=== PATIENT | male | born 1970 | race Caucasian/White ===

== ENCOUNTER → 2022-05-13 13:17 | Outpatient (CLI) | payer OTHER, SELFPAY ==
--- NOTE | 2022-05-13 | DI.ECHO.S_ITS ---
[facility]---------+ [facility] +---------+ : : [address] : [address] : : : : [id number] : : : : Phone: [phone]---------+ Echocardiogram Report + + :Name: JESSICA PEARCE Study Date: 05/13/2022 Height: 66 in : :[facility] ReadingLocation: Weight: 162 lb : : Gender: Male BSA: 1.8 m2 : :: 1970 Age: 51 yrs BP: 134/87 mmHg: :Reason For Study: PRECORDIAL PAIN : :Ordering Physician: NAVEED, : :JACY Butt Performed By: Oumou Weber : :Referring: JACY LUCIO : + + Interpretation Summary The patient was in sinus rhythm with heart rates between 60-72 bpm during the exam. The left ventricle is normal in size and wall thickness. The ejection fraction is estimated to be 60-65%. Diastolic parameters suggest probable normal left ventricular diastolic function and normal filling pressures. No significant valvular disease. No prior study for comparison Procedure: A two-dimensional transthoracic echocardiogram with color flow and Doppler was performed. The study quality was technically adequate. There is no prior echocardiogram noted for this patient. The patient was in sinus rhythm with heart rates between 60-72 bpm during the exam. Left Ventricle: The left ventricle is normal in size and wall thickness. The ejection fraction is estimated to be 60-65%. Diastolic parameters suggest probable normal left ventricular diastolic function and normal filling pressures. Right Ventricle: The right ventricle is normal in size and function. Atria: The left atrial size is normal. Right atrial size is normal. There is no Doppler evidence for an interatrial shunt. Mitral Valve: The mitral valve is normal in structure and function. There is trace mitral regurgitation. Aortic Valve: The aortic valve is trileaflet. The aortic valve opens well. There is no aortic valve stenosis. There is trace aortic regurgitation. Tricuspid Valve: The tricuspid valve is normal in structure and function. There is trace tricuspid regurgitation. Pulmonic Valve: The pulmonic valve is not well visualized. There is trace pulmonic regurgitation. Great Vessels: The aortic root is normal size. The dimensions of the ascending aorta are normal. The IVC is of normal diameter and collapses greater than 50% with a sniff. This suggests a low right atrial pressure of 3 mm Hg. Pericardium/ Pleura There is no pericardial effusion. There is no pleural effusion. MMode/2D Measurements & Calculations LVIDd: 4.5 cm LVOT diam: 2.1 cm LVIDs: 3.3 cm Ao root diam: 3.5 cm FS: 27.2 % asc Aorta Diam: 3.4 cm IVSd: 0.91 cm Ao Arch Diam (Prox Trans): 2.7 cm LVPWd: 0.85 cm LV elizalde. diameter/BSA (cm/m^2): 2.4 LV sys. diameter/BSA (cm/m^2): 1.8 LA A2 area: 14.3 cm2 RA long axis: 4.2 cm LA A4 area: 13.7 cm2 RA area: 12.6 cm2 LA length (vol): 4.5 cm RA vol: 32.6 ml LA vol: 36.7 ml RA : 17.8 ml/m2 LA vol index: 20.1 ml/m2 IVC diam: 1.4 cm RVD1 (basal): 3.4 cm RVD2 (mid): 2.9 cm TAPSE: 2.2 cm Doppler Measurements & Calculations Ao V2 max: 140.3 cm/sec LVOT Max Brandon: 132.6 cm/sec Ao V2 mean: 96.7 cm/sec LV V1 max P.0 mmHg Ao max P.9 mmHg LV V1 VTI: 26.1 cm Ao mean P.3 mmHg HILLARY(I,D): 3.6 cm2 Ao V2 VTI: 25.4 cm HILLARY(V,D): 3.3 cm2 sev ratio: 1.0 HILLARY indexed to BSA (cm^2/m^2): 2.0 MV E max brandon: 54.4 cm/sec PA V2 max: 101.6 cm/sec MV A max brandon: 62.7 cm/sec PA V2 mean: 79.5 cm/sec MV E/A: 0.87 PA mean P.7 mmHg Med Peak E' Brandon: 9.2 cm/sec PA pr(Accel): 29.3 mmHg E/E' med: 5.9 Lat Peak E' Brandon: 14.5 cm/sec E/E' lat: 3.8 E/e' average: 4.8 MV dec time: 0.24 sec SV(LVOT): 92.5 ml Reading Physician:BRANDI
== END ==
PROVIDERS: PCP Nurse Practitioner Family; Referring Provider Nurse Practitioner Family; Visit Provider Nurse Practitioner Family
DX: R07.2 Precordial pain (principal)
CPT/HCPCS: 93306

== ENCOUNTER → 2022-09-01 09:11 | Outpatient (CLI) | payer OTHER, SELFPAY ==
--- NOTE | 2022-09-01 | DI.RAD.S_ITS ---
PROCEDURE: XR CHEST 2V INDICATIONS: CHEST PAIN X6 MONTHS W/NEGATIVE CARDIAC EVALUATION TECHNIQUE: 2 views of the chest were acquired. COMPARISON: None. FINDINGS: Surgical changes and devices: None. Lungs and pleura: Lungs are clear. No pleural effusions or pneumothorax. Mediastinum: Mediastinal contours are normal. Heart size is normal. Bones and chest wall: No suspicious bony abnormalities. Soft tissues appear unremarkable. IMPRESSION: No acute cardiopulmonary abnormality. Dictated by: Chance John M.D. on 09/01/2022 at 9:31 Approved by: Chance John M.D. on 09/01/2022 at 9:32
== END ==
PROVIDERS: PCP Physician Assistant Medical; Referring Provider Physician Assistant Medical; Visit Provider Physician Assistant Medical
DX: R07.89 Other chest pain (principal)
CPT/HCPCS: 71046